=== PATIENT | female | born 1975 | race Caucasian/White ===

== ENCOUNTER 2025-10-15 06:22 | Day surgery (SDC) | payer OTHER, SELFPAY | END 2025-10-15 11:47 | disposition home or self-care (01) | LOC: GI 06:22 | PROVIDERS: ATTENDING PHYSICIAN Internal Medicine | DX: Z12.11 Encounter for screening for malignant neoplasm of colon (principal); K64.8 Other hemorrhoids; K63.5 Polyp of colon; K57.30 Diverticulosis of large intestine without perforation or abscess without bleeding; Z83.719 Family history of colon polyps, unspecified | CPT/HCPCS: 45380; 88305 ==